=== PATIENT | male | born 1970 | race Asian ===

== ENCOUNTER 2018-12-09 09:38 | Inpatient (IN) | payer OTHER ==
[~2018-12-09] VITALS: Ht 167.6 cm; Wt 82.1 kg
[~2018-12-09 09:38] MED LIST: BG MC; COL100 PO; ECO81 PO; GLU500 PO; HEP100I IV; HUMULIN R100 U/1 M1 SC; L20I IV; LIPI10 PO; METOPROLOL TART25 M1 PO; MOR2I IV; NIT0.4 SL; NOR5 PO; PLA75 PO; ZES20 PO; ZOFI IV
[2018-12-09 09:44] VITALS: Ht 167.6 cm; Wt 82.1 kg
[2018-12-09 10:52] LABS: BASOPHIL % 0 % (0-2); PLATELET COUNT 268 x10^3mcL (130-400); RED CELL DISTRIBUTION WIDTH 12.6 % (11.5-14.5)
[2018-12-09 11:20] LABS: CALCIUM 8.9 mg/dL (8.5-10.1); CARBON DIOXIDE 24.5 mmol/L (21-32); CHLORIDE SERUM 98 mmol/L (98-107); CREATININE SERUM 1.1 mg/dL (0.7-1.3); GFR1 > 60 mL/min; GLUCOSE SERUM 207 mg/dL (74-106); POTASSIUM SERUM 4.6 mmol/L (3.5-5.1); SODIUM SERUM 133 mmol/L (136-145)
[2018-12-09 11:25] LABS: ALBUMIN 4.5 g/dL (3.4-5.0); ALKALINE PHOSPHATASE 80 U/L (46-116); ALT/SGPT 50 U/L (16-63); AST/SGOT 27 U/L (15-37); BILIRUBIN TOTAL 0.9 mg/dL (0.20-1.00)
[2018-12-09 11:36] LABS: TOTAL PROTEIN, SERUM 8.5 g/dL (6.4-8.2)
[2018-12-09 13:20] LABS: UA SPECIFIC GRAVITY 1.015 (1.005-1.035); microscopic required? YES; urine erythrocyte NEGATIVE (NEGATIVE)
[2018-12-09] MEDS ORDERED: CLOPIDOGREL75 M1 PO (13:21)
[2018-12-09] MEDS ORDERED: METFORMIN HYDR500 M1 PO (13:21)
[2018-12-09] MEDS ORDERED: LEVOTHYROXINE0.05 M2 PO (13:21)
[2018-12-09] MEDS ORDERED: CARVEDILOL12.5 M1 PO (13:22)
[2018-12-09] MEDS ORDERED: FUROSEMIDE20 MG PO (13:22)
[2018-12-09] MEDS ORDERED: POTASSIUM CHLO10 MEQ PO (13:22)
[2018-12-09] MEDS ORDERED: ZESTRIL5 MG PO (13:22)
[2018-12-09] MEDS ORDERED: ALDACTONE25 MG PO (13:22)
[2018-12-09 13:43] VITALS: BP 126/84
[2018-12-09 14:06] LABS: MAGNESIUM 1.9 mg/dL (1.8-2.4)
[2018-12-09 14:14] LABS: AMPHETAMINE QUAL UR NONE DETECTED (See below)
[2018-12-09 14:34] VITALS: BP 104/73
[2018-12-09 18:15] VITALS: BP 119/76
[2018-12-09 21:20] VITALS: BP 115/69
[2018-12-10 06:20] VITALS: BP 102/59
[2018-12-10 08:09] LABS: BASOPHIL % 0.1 % (0-2); PLATELET COUNT 229 x10^3mcL (130-400); RED CELL DISTRIBUTION WIDTH 12.8 % (11.5-14.5)
[2018-12-10 08:29] LABS: CALCIUM 8.8 mg/dL (8.5-10.1); CHLORIDE SERUM 103 mmol/L (98-107); GFR1 > 60 mL/min; GLUCOSE SERUM 209 mg/dL (74-106); PHOSPHOROUS 2.9 mg/dL (2.5-4.9); POTASSIUM SERUM 3.9 mmol/L (3.5-5.1); SODIUM SERUM 138 mmol/L (136-145)
[2018-12-10 09:50] VITALS: BP 102/58
[2018-12-10 12:36] VITALS: BP 112/71
[2018-12-10 13:23] VITALS: BP 112/71
[2018-12-10] MEDS ORDERED: PREDNISONE2.5 MG PO (14:23)
[2018-12-10] MEDS ORDERED: XOPENEX1.25 MG/3 NEB (14:24)
== END 2018-12-10 18:45 | disposition home or self-care (01) | DRG 141 ==
LOC: ED 09:38 → DU 13:14
PROVIDERS: Emergency Medicine; ADMIT Internal Medicine
DX: J45.901 Unspecified asthma with (acute) exacerbation (principal); J96.01 Acute respiratory failure with hypoxia; N17.0 Acute kidney failure with tubular necrosis; I50.9 Heart failure, unspecified; D72.829 Elevated white blood cell count, unspecified; E03.9 Hypothyroidism, unspecified; I11.0 Hypertensive heart disease with heart failure; E11.65 Type 2 diabetes mellitus with hyperglycemia; Z95.810 Presence of automatic (implantable) cardiac defibrillator; Z95.1 Presence of aortocoronary bypass graft; Z82.5 Family history of asthma and other chronic lower respiratory diseases; Z83.3 Family history of diabetes mellitus; Z82.49 Family history of ischemic heart disease and other diseases of the circulatory system
CPT/HCPCS: 82962; 83880; 94150; J1956; J2920; J2930; J7030; J7613; J7626